=== PATIENT | female | born 1995 | race Caucasian/White ===

== ENCOUNTER 2017-05-02 07:03 | Inpatient (IN) | payer MEDICAID, OTHER ==
[2017-05-02] MEDS ORDERED: EPHEDRINE SULFATE 50 MG/ML SOL IV PRN (08:15)
[2017-05-02] MEDS ORDERED: DIPHENHYDRAMINE 50 MG/ML SOL IV PRN (08:15)
[2017-05-02] MEDS ORDERED: NALBUPHINE HCL 20 MG/ML SOL IV PRN (08:15)
[2017-05-02] MEDS ORDERED: OXYTOCIN 10000 MU/ML 20,000 MU in LACTATED RINGERS 1,000 ML IV SCH (08:15)
[2017-05-02] MEDS ORDERED: NALOXONE HYDROCHLORIDE 0.4 MG/ML SOL IV PRN (08:15)
[2017-05-02] MEDS ORDERED: TERBUTALINE SULFATE 1 MG/ML SOL SC PRN (08:15)
[2017-05-02] MEDS ORDERED: LACTATED RINGERS 1,000 ML IV SCH (08:15)
[2017-05-02] MEDS ORDERED: LACTATED RINGERS 1,000 ML ONE (08:45)
[2017-05-02] MEDS ORDERED: OXYTOCIN 10000 MU/ML SOL ONE (08:45)
[2017-05-02 08:59] LABS: BASOPHILS % (AUTO) 1 % (0-3); EOSINOPHILS % (AUTO) 1 % (0-9); HEMATOCRIT 38 % (35-47); MEAN CORPUSCULAR HGB CONC 32.3 gm/dl (32.0-36.0); MEAN CORPUSCULAR VOLUME 82 fL (81-99); MONOCYTES % (AUTO) 8.1 % (0-12); NEUTROPHILS % (AUTO) 71.3 % (37-80)
[2017-05-02] MEDS: LACTATED RINGERS 1,000 ML IV SCH ×4 (09:25→23:40)
[2017-05-02] MEDS: SODIUM CHLORIDE 0.9% FLUSH 10 ML SOL IV SCH ×2 (09:30→17:46)
[2017-05-02] MEDS ORDERED: METHYLERGONOVINE MALEATE 0.2 MG/ML SOL IM PRN (11:19)
[2017-05-02] MEDS ORDERED: CARBOPROST 250 MCG/ML SOL IM PRN (11:19)
[2017-05-02] MEDS ORDERED: OXYTOCIN 10000 MU/ML SOL IM PRN (11:19)
[2017-05-02] MEDS ORDERED: FENTANYL 100MCG/2ML SOL IV PRN (11:19)
[2017-05-02] MEDS ORDERED: LACTATED RINGERS 1,000 ML IV PRN (11:19)
[2017-05-02] MEDS ORDERED: SODIUM CHLORIDE 0.9% FLUSH 10 ML SOL IV PRN (11:19)
[2017-05-02] MEDS ORDERED: MEPIVACAINE HCL 1% MPF 30 ML SOL INFIL PRN (11:19)
[2017-05-02] MEDS ORDERED: ROPIVACAINE HYDROCHLORIDE 5 MG/ML SOL ONE (14:49)
[2017-05-02] MEDS ORDERED: LIDOCAINE HCL 2% MPF SOL ONE (14:49)
[2017-05-02] MEDS ORDERED: FENTANYL 250 MCG/ 5ML SOL ONE (14:49)
[2017-05-02] MEDS ORDERED: TEMAZEPAM 15MG 15 MG CAP PO PRN (21:23)
[2017-05-02] MEDS ORDERED: WITCH HAZEL 1 EA PAD TOP PRN (21:23)
[2017-05-02] MEDS ORDERED: METHYLERGONOVINE MALEATE 0.2 MG TAB PO PRN (21:23)
[2017-05-02] MEDS ORDERED: FLEET ENEMA PR PRN (21:23)
[2017-05-02] MEDS ORDERED: BENZOCAINE/MENTHOL 1 SPR TOP PRN (21:23)
[2017-05-02] MEDS ORDERED: BISACODYL 10 MG SUP PR PRN (21:23)
[2017-05-02] MEDS ORDERED: APAP/HYDROCODONE 325/5 TAB PO PRN (21:23)
[2017-05-03 01:16] VITALS: O2SAT 97
[2017-05-03] MEDS: DOCUSATE SODIUM 100 MG SGL PO SCH ×2 (10:03→21:50)
[2017-05-03] MEDS: IBUPROFEN 600 MG TAB PO PRN ×2 (12:22→21:50)
[2017-05-03] MEDS: SODIUM CHLORIDE 0.9% FLUSH 10 ML SOL IV SCH ×2 (12:25→18:39)
[2017-05-04 02:29] VITALS: RESP 20
[2017-05-04 07:50] VITALS: BP 104/66; PULSE 86; TEMP 97.4
[2017-05-04] MEDS: IBUPROFEN 600 MG TAB PO PRN (09:07)
[2017-05-04] MEDS: DOCUSATE SODIUM 100 MG SGL PO SCH (09:07)
== END 2017-05-04 11:35 | disposition home or self-care (01) | DRG 775 ==
LOC: OB 07:03 → OBSVTOIN 07:03 → OB 05-03 16:15
PROVIDERS: ADMIT Family Medicine; ATTEND Family Medicine
PROC: 10E0XZZ Delivery of Products of Conception, External Approach (ICD-10-PCS; principal; 2017-05-02)
PROC: 0KQM0ZZ Repair Perineum Muscle, Open Approach (ICD-10-PCS; 2017-05-02)
PROC: 10907ZC Drainage of Amniotic Fluid, Therapeutic from Products of Conception, Via Natural or Artificial Opening (ICD-10-PCS; 2017-05-02)
PROC: 3E0P3VZ Introduction of Hormone into Female Reproductive, Percutaneous Approach (ICD-10-PCS; 2017-05-02)
DX: O48.0 Post-term pregnancy (principal); O26.53 Maternal hypotension syndrome, third trimester; Z3A.40 40 weeks gestation of pregnancy; O76 Abnormality in fetal heart rate and rhythm complicating labor and delivery; O69.81X0 Labor and delivery complicated by cord around neck, without compression, not applicable or unspecified; O70.0 First degree perineal laceration during delivery; Z37.0 Single live birth
CPT/HCPCS: 36415; 85018; 85025; J0670; J2590; J2795; J3010; J3105; A9270-GY